=== PATIENT | male | born 1970 | race Caucasian/White ===

== ENCOUNTER → 2021-01-04 | Outpatient (CLI) | payer OTHER ==
[~2021-01-04] MED LIST: CARDIZEM CD120 MG PO; CELEXA10 MG PO; HYDROCODONE-AP1 EAC6 PO; KEFLEX500 MG PO; LISINOPRIL-HCT1 EAC2 PO; WELLBUTRIN SR100 MG PO
== END ==
LOC: HYPER 08:33
PROVIDERS: ATTEND Emergency Medicine
DX: S91.321A Laceration with foreign body, right foot, initial encounter (principal); E11.622 Type 2 diabetes mellitus with other skin ulcer; L97.812 Non-pressure chronic ulcer of other part of right lower leg with fat layer exposed; L97.821 Non-pressure chronic ulcer of other part of left lower leg limited to breakdown of skin; L03.115 Cellulitis of right lower limb; L03.116 Cellulitis of left lower limb; L03.032 Cellulitis of left toe; L84 Corns and callosities; L85.9 Epidermal thickening, unspecified; I89.0 Lymphedema, not elsewhere classified; E11.42 Type 2 diabetes mellitus with diabetic polyneuropathy; E11.51 Type 2 diabetes mellitus with diabetic peripheral angiopathy without gangrene; E11.22 Type 2 diabetes mellitus with diabetic chronic kidney disease; I12.9 Hypertensive chronic kidney disease with stage 1 through stage 4 chronic kidney disease, or unspecified chronic kidney disease; N18.2 Chronic kidney disease, stage 2 (mild); E66.01 Morbid (severe) obesity due to excess calories; E29.1 Testicular hypofunction; G89.4 Chronic pain syndrome; G47.33 Obstructive sleep apnea (adult) (pediatric); I87.2 Venous insufficiency (chronic) (peripheral); K21.9 Gastro-esophageal reflux disease without esophagitis; M51.36 Other intervertebral disc degeneration, lumbar region; F17.200 Nicotine dependence, unspecified, uncomplicated; F32.9 Major depressive disorder, single episode, unspecified; F41.9 Anxiety disorder, unspecified; Z79.4 Long term (current) use of insulin; Z68.43 Body mass index [BMI] 50.0-59.9, adult; X58.XXXA Exposure to other specified factors, initial encounter; Y93.89 Activity, other specified; Y92.89 Other specified places as the place of occurrence of the external cause; Y99.8 Other external cause status

== ENCOUNTER → 2021-01-06 | Outpatient (CLI) | payer OTHER ==
--- NOTE | 2021-01-25 17:20 | P ---
[facility] [place] [address] PROCEDURE REPORT Name: MARIAN SPAIN Room #: REG [facility].#: [id number] Admission: 01/06/21 Attend Phys: Brad Gregory MD Discharge: Date of : 74 Report #: [id number] THIS REPORT FOR: cc: FAM - No family physician/PCP FAM - Family physician unknown Brad Gregory MD ~ DOC #: [id number] cc: DO Brad Galindo MD DATE OF SERVICE: 01/06/2021 DATE OF SERVICE: 01/06/2021 PERSONAL PHYSICIAN: Dr. Mando Nicolas CHIEF COMPLAINT: Foreign body, right foot. HISTORY OF PRESENT ILLNESS: This is a 50-year-old white male who has had a sensation of pain in his right foot for the past several days. The patient was hospitalized for cellulitis in the right foot and leg approximately a week ago. At that time, x-ray and ultrasound confirmed a radiopaque foreign body in the plantar aspect of his right foot. The patient at that time; however, did not want to have it performed at [facility], so he was discharged and came to [facility] for further evaluation. The patient today under fluoroscopy had a glass foreign body removed without difficulty. DESCRIPTION OF PROCEDURE: After timeout was taken, consent was obtained, the patient had a foreign body removed under fluoroscopy. Start time was 12:38 and end time was 13:08. The patient did have 10 mL of lidocaine with epinephrine instilled in his foot in the plantar aspect prior to this procedure. The patient tolerated the procedure quite well. Bleeding was minimal and easily controlled with pressure. The glass foreign body was removed without difficulty. There appeared to be a smaller foreign body within the plantar aspect of the foot, which was unable to be retrieved despite several attempts. Fluoroscopy time itself was 5.8 minutes mGy CM2 was 267.67 and mGy was 13. Once again, the patient tolerated the procedure well. Post-procedure, the patient had the foot cleansed once again with Betadine as he did prior to the procedure. Sterile dressing was then placed over the wound and covered with Kerlix and Chandana wrap. The patient will be sent home with Mepilex Ag foam to place over the wound every 2 days. The patient is already on oral antibiotics and told to continue those and we will see the patient later this next week for followup. The patient will be discharged in stable condition. Bard Gregory MD [facility]/[address] [address] PROCEDURE REPORT Name: MARIAN SPAIN Room #: REG CLI [facility]#: [id number] Admission: 01/06/21 Attend Phys: Brad Gregory MD Discharge: Date of : 74 Report #: [id number] <ELECTRONICALLY SIGNED> By: Brad Gregory MD 01/25/21 1720 1244 0003 Brad Gregory MD /nt
== END | disposition home or self-care (01) ==
LOC: SPEC 11:38
PROVIDERS: ATTEND Emergency Medicine
DX: M25.571 Pain in right ankle and joints of right foot (principal); Z18.81 Retained glass fragments

== ENCOUNTER → 2021-01-11 | Outpatient (CLI) | payer OTHER | LOC: HYPER 08:52 | PROVIDERS: ATTEND Emergency Medicine | DX: S91.321D Laceration with foreign body, right foot, subsequent encounter (principal); E11.622 Type 2 diabetes mellitus with other skin ulcer; L97.812 Non-pressure chronic ulcer of other part of right lower leg with fat layer exposed; L97.821 Non-pressure chronic ulcer of other part of left lower leg limited to breakdown of skin; L03.115 Cellulitis of right lower limb; L03.116 Cellulitis of left lower limb; L03.032 Cellulitis of left toe; L84 Corns and callosities; L85.9 Epidermal thickening, unspecified; I89.0 Lymphedema, not elsewhere classified; E11.42 Type 2 diabetes mellitus with diabetic polyneuropathy; E11.51 Type 2 diabetes mellitus with diabetic peripheral angiopathy without gangrene; E11.22 Type 2 diabetes mellitus with diabetic chronic kidney disease; I12.9 Hypertensive chronic kidney disease with stage 1 through stage 4 chronic kidney disease, or unspecified chronic kidney disease; N18.2 Chronic kidney disease, stage 2 (mild); E11.65 Type 2 diabetes mellitus with hyperglycemia; E66.01 Morbid (severe) obesity due to excess calories; E29.1 Testicular hypofunction; G89.4 Chronic pain syndrome; G47.33 Obstructive sleep apnea (adult) (pediatric); I87.2 Venous insufficiency (chronic) (peripheral); K21.9 Gastro-esophageal reflux disease without esophagitis; M51.36 Other intervertebral disc degeneration, lumbar region; F17.200 Nicotine dependence, unspecified, uncomplicated; F32.9 Major depressive disorder, single episode, unspecified; F41.9 Anxiety disorder, unspecified; Z79.4 Long term (current) use of insulin; Z68.43 Body mass index [BMI] 50.0-59.9, adult; X58.XXXD Exposure to other specified factors, subsequent encounter ==

== ENCOUNTER → 2021-05-29 | Outpatient (CLI) | payer OTHER | LOC: HYPER 13:13 | PROVIDERS: ATTEND Emergency Medicine | DX: E11.621 Type 2 diabetes mellitus with foot ulcer (principal); L97.511 Non-pressure chronic ulcer of other part of right foot limited to breakdown of skin; E11.622 Type 2 diabetes mellitus with other skin ulcer; L97.812 Non-pressure chronic ulcer of other part of right lower leg with fat layer exposed; L97.821 Non-pressure chronic ulcer of other part of left lower leg limited to breakdown of skin; L03.115 Cellulitis of right lower limb; L03.116 Cellulitis of left lower limb; L84 Corns and callosities; L85.9 Epidermal thickening, unspecified; I89.0 Lymphedema, not elsewhere classified; E11.42 Type 2 diabetes mellitus with diabetic polyneuropathy; E11.51 Type 2 diabetes mellitus with diabetic peripheral angiopathy without gangrene; E11.22 Type 2 diabetes mellitus with diabetic chronic kidney disease; I12.9 Hypertensive chronic kidney disease with stage 1 through stage 4 chronic kidney disease, or unspecified chronic kidney disease; N18.2 Chronic kidney disease, stage 2 (mild); E66.01 Morbid (severe) obesity due to excess calories; E29.1 Testicular hypofunction; G89.4 Chronic pain syndrome; G47.33 Obstructive sleep apnea (adult) (pediatric); I87.2 Venous insufficiency (chronic) (peripheral); K21.9 Gastro-esophageal reflux disease without esophagitis; M51.36 Other intervertebral disc degeneration, lumbar region; F17.200 Nicotine dependence, unspecified, uncomplicated; F32.9 Major depressive disorder, single episode, unspecified; F41.9 Anxiety disorder, unspecified; Z79.4 Long term (current) use of insulin; Z68.43 Body mass index [BMI] 50.0-59.9, adult ==

== ENCOUNTER → 2021-09-08 | Outpatient (CLI) | payer OTHER | LOC: HYPER 09:20 | PROVIDERS: ATTEND Emergency Medicine | DX: E11.621 Type 2 diabetes mellitus with foot ulcer (principal); L97.511 Non-pressure chronic ulcer of other part of right foot limited to breakdown of skin; E11.622 Type 2 diabetes mellitus with other skin ulcer; L97.812 Non-pressure chronic ulcer of other part of right lower leg with fat layer exposed; L97.821 Non-pressure chronic ulcer of other part of left lower leg limited to breakdown of skin; L03.115 Cellulitis of right lower limb; L03.116 Cellulitis of left lower limb; L84 Corns and callosities; L85.9 Epidermal thickening, unspecified; I89.0 Lymphedema, not elsewhere classified; E11.42 Type 2 diabetes mellitus with diabetic polyneuropathy; E11.51 Type 2 diabetes mellitus with diabetic peripheral angiopathy without gangrene; E11.22 Type 2 diabetes mellitus with diabetic chronic kidney disease; I12.9 Hypertensive chronic kidney disease with stage 1 through stage 4 chronic kidney disease, or unspecified chronic kidney disease; N18.2 Chronic kidney disease, stage 2 (mild); E66.01 Morbid (severe) obesity due to excess calories; E29.1 Testicular hypofunction; G89.4 Chronic pain syndrome; G47.33 Obstructive sleep apnea (adult) (pediatric); I87.2 Venous insufficiency (chronic) (peripheral); K21.9 Gastro-esophageal reflux disease without esophagitis; M51.36 Other intervertebral disc degeneration, lumbar region; F17.200 Nicotine dependence, unspecified, uncomplicated; F32.9 Major depressive disorder, single episode, unspecified; F41.9 Anxiety disorder, unspecified; Z79.4 Long term (current) use of insulin; Z68.43 Body mass index [BMI] 50.0-59.9, adult ==

== ENCOUNTER → 2021-09-25 | Outpatient (CLI) | payer OTHER | LOC: HYPER 13:48 | PROVIDERS: ATTEND Emergency Medicine | DX: E11.621 Type 2 diabetes mellitus with foot ulcer (principal); L97.512 Non-pressure chronic ulcer of other part of right foot with fat layer exposed; E11.622 Type 2 diabetes mellitus with other skin ulcer; L97.812 Non-pressure chronic ulcer of other part of right lower leg with fat layer exposed; L97.822 Non-pressure chronic ulcer of other part of left lower leg with fat layer exposed; L03.115 Cellulitis of right lower limb; L03.116 Cellulitis of left lower limb; L84 Corns and callosities; L85.9 Epidermal thickening, unspecified; I89.0 Lymphedema, not elsewhere classified; E11.42 Type 2 diabetes mellitus with diabetic polyneuropathy; E11.51 Type 2 diabetes mellitus with diabetic peripheral angiopathy without gangrene; E11.22 Type 2 diabetes mellitus with diabetic chronic kidney disease; I12.9 Hypertensive chronic kidney disease with stage 1 through stage 4 chronic kidney disease, or unspecified chronic kidney disease; N18.2 Chronic kidney disease, stage 2 (mild); E66.01 Morbid (severe) obesity due to excess calories; E29.1 Testicular hypofunction; G89.4 Chronic pain syndrome; G47.33 Obstructive sleep apnea (adult) (pediatric); I87.2 Venous insufficiency (chronic) (peripheral); K21.9 Gastro-esophageal reflux disease without esophagitis; M51.36 Other intervertebral disc degeneration, lumbar region; F17.200 Nicotine dependence, unspecified, uncomplicated; F32.9 Major depressive disorder, single episode, unspecified; F41.9 Anxiety disorder, unspecified; Z79.4 Long term (current) use of insulin; Z68.43 Body mass index [BMI] 50.0-59.9, adult ==